=== PATIENT | male | born 1960 ===

== ENCOUNTER 2017-04-27 18:32 | Emergency (ER) | payer OTHER ==
[2017-04-27 19:33] VITALS: BP 122/78; PULSE 68; RESP 16; TEMP 98.7; O2SAT 100
--- NOTE | 2017-04-27 19:59 | ED PDOC ---
HPI: CCC, URI, Sore Throat Time Seen by Provider: 04/27/17 19:38 Chief Complaint (Nursing): Flu-like Symptoms Chief Complaint (Provider): Flu-like Symptoms History Per: Patient History/Exam Limitations: no limitations Onset/Duration Of Symptoms: Days (x2) Current Symptoms Are (Timing): Still Present Additional Complaint(s): 56-year-old male presents to the emergency department complaining of subjective fever with associated cough, sore throat, and body aches, since yesterday. He last took Motrin at 3PM today. Patient reports cough is productive of yellow phlegm. He denies chest pain or shortness of breath. PMD: None Past Medical History Reviewed: Historical Data, Nursing Documentation, Vital Signs Vital Signs: Last Vital Signs Temp 98.7 F 04/27/17 19:30 Pulse 68 04/27/17 19:30 Resp 16 04/27/17 19:30 BP 122/78 04/27/17 19:30 Pulse Ox 100 04/27/17 20:53 - Medical History PMH: Hypercholesterolemia - Surgical History Surgical History: Hernia Repair (inguinal ) - Family History Family History: States: No Known Family Hx - Living Arrangements Living Arrangements: With Family - Social History Current smoker - smoking cessation education provided: No Alcohol: None Drugs: Denies - Home Medications Home Medications: Ambulatory Orders Medication Instructions Recorded Ciprofloxacin Hydrochloride [Cipro] 750 mg PO BID 7 Days tab 12/22/13 Famotidine [Pepcid] 20 mg PO DAILY PRN #6 tab 12/22/13 Ibuprofen [Motrin] 600 mg PO Q8 PRN #6 tab 12/22/13 Metronidazole [Flagyl] 500 mg PO QID 7 Days tab 12/22/13 Acetaminophen [Acetaminophen ER] 650 mg PO Q8 #30 tablet.er 06/11/16 Docusate Sodium [Dulcolax Stool 100 mg PO BID #12 capsule 06/11/16 Softener] Phosphate Enema [Fleet Enema 135 135 ml RC BID #2 nma 06/11/16 Ml] Albuterol HFA [Ventolin HFA 90 1 puff IH ASDIR #1 unit 04/27/17 mcg/actuation (8 g)] Azithromycin [Zithromax] 250 mg PO DAILY #6 tab 04/27/17 Benzonatate 200 mg PO TID PRN #20 capsule 04/27/17 Oseltamivir Phosphate [Tamiflu] 75 mg PO BID #10 capsule 04/27/17 - Allergies Allergies/Adverse Reactions: Allergies Allergy/AdvReac Type Severity Reaction Status Date / Time No Known Allergies Allergy Verified 12/22/13 08:29 Review of Systems ROS Statement: Except As Marked, All Systems Reviewed And Found Negative Constitutional: Positive for: Fever, Other (Body aches) ENT: Positive for: Throat Pain Cardiovascular: Negative for: Chest Pain Respiratory: Positive for: Cough, Sputum (yellow). Negative for: Shortness of Breath Physical Exam - Reviewed Nursing Documentation Reviewed: Yes Vital Signs Reviewed: Yes - Physical Exam Appears: Positive for: Well, Non-toxic, No Acute Distress Head Exam: Positive for: ATRAUMATIC, NORMAL INSPECTION, NORMOCEPHALIC Skin: Positive for: Normal Color. Negative for: Rash Eye Exam: Positive for: Normal appearance ENT: Positive for: TM Is/Are (normal), Pharyngeal Erythema. Negative for: Tonsillar Exudate, Tonsillar Swelling Neck: Positive for: Normal, Painless ROM Cardiovascular/Chest: Positive for: Regular Rate, Rhythm. Negative for: Murmur Respiratory: Positive for: Normal Breath Sounds. Negative for: Accessory Muscle Use, Wheezing, Respiratory Distress Extremity: Positive for: Normal ROM Neurologic/Psych: Positive for: Alert, Oriented - ECG O2 Sat by Pulse Oximetry: 100 (RA) Pulse Ox Interpretation: Normal - Other Rad chest x-ray X-Ray: Interpreted by Me, Viewed By Me X-Ray Interpretation: no acute finding Medical Decision Making Medical Decision Making: Initial Impression: 56-year-old with flu-like symptoms Time: 19:56 Plan: Flu swab Rapid strep and throat culture Tylenol 975mg PO Motrin 600mg PO Chest X-Ray Will d/c with rx zithromax, tamiflu, tessalon perles and ventolin inhaler. Patient was instructed to continue with Tylenol and Motrin for fever control. He was referred to clinic for follow up. Scribe Attestation: Documented by Andreia Friend, acting as a scribe for Pamella cMcauley PA-C Provider Scribe Attestation: All medical record entries made by the Scribe were at my direction and personally dictated by me. I have reviewed the chart and agree that the record accurately reflects my personal performance of the history, physical exam, medical decision making, and the department course for this patient. I have also personally directed, reviewed, and agree with the discharge instructions and disposition. Disposition - Clinical Impression Clinical Impression: Influenza-like symptoms - Patient ED Disposition Is Patient to be Admitted: No Counseled Patient/Family Regarding: Studies Performed, Diagnosis, Need For Followup, Rx Given - Disposition Referrals: [facility] [Outside] Disposition: Routine/Home Disposition Time: 21:11 Condition: STABLE Additional Instructions: Take [id number] Tylenol and Motrin for body aches and fever. Take prescription meds as directed. Rest and drink plenty of fluids. Follow-up with clinic in 2-3 days. Prescriptions: Albuterol HFA [Ventolin HFA 90 mcg/actuation (8 g)] 1 puff IH ASDIR #1 unit Azithromycin [Zithromax] 250 mg PO DAILY #6 tab Benzonatate 200 mg PO TID PRN #20 capsule PRN Reason: Cough Oseltamivir Phosphate [Tamiflu] 75 mg PO BID #10 capsule Instructions: Upper Respiratory Infection (ED) Forms: [employer] (Sri Lankan) Print Language: ANGUILLAN
--- NOTE | 2017-04-28 11:04 | RAD ---
HISTORY: Cough. COMPARISON: No prior. TECHNIQUE: Chest PA and lateral FINDINGS: LUNGS: No active pulmonary disease. PLEURA: No significant pleural effusion identified. No pneumothorax apparent. CARDIOVASCULAR: No radiographic findings to suggest acute or significant cardiovascular disease. OSSEOUS STRUCTURES: No significant abnormalities. VISUALIZED UPPER ABDOMEN: Normal. OTHER FINDINGS: None. IMPRESSION: No active disease.
== END 2017-04-27 21:26 | disposition home or self-care (01) ==
LOC: H.ER 18:32
DX: J06.9 Acute upper respiratory infection, unspecified (principal); E78.00 Pure hypercholesterolemia, unspecified

== ENCOUNTER 2017-09-05 12:29 | Emergency (ER) | payer OTHER ==
[2017-09-05] MEDS ORDERED: Iohexol 240 (50 ml) PO ONE (13:33)
[2017-09-05] MEDS ORDERED: Sodium Chloride 0.9% 1,000 ML IV STA (13:34)
--- NOTE | 2017-09-05 13:37 | ED PDOC ---
HPI: Abdomen Time Seen by Provider: 09/05/17 12:30 Chief Complaint (Nursing): Abdominal Pain Chief Complaint (Provider): Abdominal Pain History Per: Patient History/Exam Limitations: no limitations Onset/Duration Of Symptoms: Days (x2) Current Symptoms Are (Timing): Still Present Additional Complaint(s): 56 year old male presents to the emergency department with complaints of periumbilical abdominal pain onset yesterday. Patient denies fever, vomiting, diarrhea, and urinary symptoms. PMD: none provided Past Medical History Reviewed: Historical Data, Nursing Documentation, Vital Signs Vital Signs: Last Vital Signs Temp 97.8 F 09/05/17 17:54 Pulse 69 09/05/17 17:54 Resp 16 09/05/17 17:54 BP 109/78 09/05/17 17:54 Pulse Ox 98 09/05/17 17:54 - Medical History PMH: Hypercholesterolemia - Surgical History Surgical History: Hernia Repair (inguinal ) - Family History Family History: States: Unknown Family Hx - Social History Current smoker - smoking cessation education provided: No Alcohol: None Drugs: Denies - Home Medications Home Medications: Ambulatory Orders Medication Instructions Recorded Ciprofloxacin Hydrochloride [Cipro] 750 mg PO BID 7 Days tab 12/22/13 Famotidine [Pepcid] 20 mg PO DAILY PRN #6 tab 12/22/13 Ibuprofen [Motrin] 600 mg PO Q8 PRN #6 tab 12/22/13 Metronidazole [Flagyl] 500 mg PO QID 7 Days tab 12/22/13 Acetaminophen [Acetaminophen ER] 650 mg PO Q8 #30 tablet.er 06/11/16 Docusate Sodium [Dulcolax Stool 100 mg PO BID #12 capsule 06/11/16 Softener] Phosphate Enema [Fleet Enema 135 135 ml RC BID #2 nma 06/11/16 Ml] Albuterol HFA [Ventolin HFA 90 1 puff IH ASDIR #1 unit 04/27/17 mcg/actuation (8 g)] Azithromycin [Zithromax] 250 mg PO DAILY #6 tab 04/27/17 Benzonatate 200 mg PO TID PRN #20 capsule 04/27/17 Oseltamivir Phosphate [Tamiflu] 75 mg PO BID #10 capsule 04/27/17 - Allergies Allergies/Adverse Reactions: Allergies Allergy/AdvReac Type Severity Reaction Status Date / Time No Known Allergies Allergy Verified 09/05/17 12:55 Review of Systems ROS Statement: Except As Marked, All Systems Reviewed And Found Negative Constitutional: Negative for: Fever Gastrointestinal: Positive for: Abdominal Pain (periumbilical). Negative for: Vomiting, Diarrhea Genitourinary Male: Negative for: Dysuria, Frequency, Incontinence Physical Exam - Reviewed Nursing Documentation Reviewed: Yes Vital Signs Reviewed: Yes - Physical Exam Appears: Positive for: No Acute Distress Head Exam: Positive for: ATRAUMATIC, NORMOCEPHALIC Skin: Positive for: Normal Color, Warm, Dry Eye Exam: Positive for: Normal appearance Neck: Positive for: Normal Cardiovascular/Chest: Positive for: Regular Rate, Rhythm. Negative for: Murmur Respiratory: Positive for: Normal Breath Sounds. Negative for: Accessory Muscle Use, Respiratory Distress Gastrointestinal/Abdominal: Positive for: Tenderness (periumbilical). Negative for: Mass, Guarding, Rebound Back: Positive for: Normal Inspection Extremity: Positive for: Normal ROM Neurologic/Psych: Positive for: Alert (and awake), Oriented (x3) - Laboratory Results Result Diagrams: 09/05/17 13:55 09/05/17 13:55 - ECG O2 Sat by Pulse Oximetry: 99 (RA) Pulse Ox Interpretation: Normal Medical Decision Making Medical Decision Making: Initial Impression: periumbilical abdominal pain rule out hernia incarceration, infection, abscess Time: 13:33 Initial Plan: --CT Abd pelvis w/ PO and IV contrast --CMP --Lipase --CBC with differential --Morphine 2mg PO --Sodium chloride 0.9% 1000ml IV --Iohexol 50ml PO --Urine Culture --Urinalysis 17:00 Patient signed out to Dr. Gant pending CT Abdomen/Pelvis read and final disposition. Scribe Attestation: Documented by Pennie Tang, acting as a scribe for Thomas Pope MD Provider Scribe Attestation: All medical entries made by the Scribe were at my direction and personally dictated by me. I have reviewed the chart and agree that the record accurately reflects my personal performance of the history, physical exam, medical decision making, and the department course for this patient. I have also personally directed, reviewed, and agree with the discharge instructions and disposition. Disposition - Clinical Impression Clinical Impression: Femoral hernia - Patient ED Disposition Is Patient to be Admitted: Transfer of Care - Disposition Referrals: Ponce Cordova MD [Staff Provider] - ([facility] DR CORDOVA [facility]) Disposition: Transfer of Care Disposition Time: 16:55 Condition: IMPROVED Instructions: Inguinal and Femoral (Groin) Hernias Forms: [facility] ED School/Work Excuse Print Language: TAIWANESE Patient Signed Over To: Pamella Gant
[2017-09-05] MEDS ORDERED: Iohexol 240 (50 ml) ONE (13:52)
[2017-09-05 14:08] LABS: BASO % 0.5 % (0.0-2.0); EOS # 0.4 K/uL (0.0-0.7); EOS % 5.4 % (0.0-4.0); HEMOGLOBIN 14.7 g/dL (12.0-18.0); LYMPH # 2.2 K/uL (1.0-4.3); LYMPH % 33.6 % (20.0-40.0); MEAN CELL VOLUME 88.2 fl (80.0-94.0); MEAN CORPUSCULAR HEMOGLOBIN 29.9 pg (27.0-31.0); MEAN CORPUSCULAR HGB CONC 33.9 g/dL (33.0-37.0); MEAN PLATELET VOLUME 9.2 fl (7.2-11.7); MONO # 0.6 K/uL (0.0-0.8); MONO % 9.1 % (0.0-10.0); NEUT # 3.4 K/uL (1.8-7.0); NEUT % 51.4 % (50.0-75.0); NRBC % 0.1 % (0.0-0.0); RBC 4.92 Mil/uL (4.40-5.90); RED CELL DISTRIBUTION WIDTH 13.8 % (11.5-14.5); WHITE BLOOD COUNT 6.5 K/uL (4.8-10.8)
[2017-09-05 14:14] LABS: SQUAMOUS EPITHIAL < 1 /hpf (0-5); URINE BACTERIA RARE (<OCC); URINE BILIRUBIN NEGATIVE (NEGATIVE); URINE BLOOD NEGATIVE (NEGATIVE); URINE CLARITY CLEAR (Clear); URINE COLOR YELLOW (YELLOW); URINE GLUCOSE (UA) NEG (Normal); URINE HYALINE CAST 0-2 /hpf (0-2); URINE LEUKOCYTE ESTERASE NEG Leu/uL (Negative); URINE PROTEIN NEGATIVE (NEGATIVE); URINE UROBILINOGEN 0.2-1.0 mg/dL (0.2-1.0)
[2017-09-05 14:18] LABS: ALB/GLOB RATIO 1.4 (1.0-2.1); ALBUMIN 4.1 g/dL (3.5-5.0); ALT/SGPT 42 U/L (21-72); AST/SGOT 31 U/L (17-59); BLOOD UREA NITROGEN 19 mg/dl (9-20); CALCIUM 8.9 mg/dL (8.4-10.2); GFR AFRICAN-AMERICAN > 60; GFR NON-AFRICAN AMERICAN > 60; LIPASE 46 U/L (23-300)
[2017-09-05] MEDS ORDERED: Iohexol 300 100 ML IJ ONE (15:36)
[2017-09-05] MEDS ORDERED: Sodium Chloride 0.9% 50 ML IV ONE (15:36)
--- NOTE | 2017-09-05 17:08 | CT ---
PROCEDURE: CT Abdomen and Pelvis with contrast HISTORY: abd pain periumbilical COMPARISON: Abdomen pelvis CT with contrast 06/11/2016. TECHNIQUE: Following oral and intravenous contrast administration, a CT examination of the abdomen and pelvis performed from the domes of the diaphragms to the symphysis pubis with reformatted datasets provided not only axial but also sagittal and coronal series. Contrast dose: Omnipaque 300, 95 cc Radiation dose: Total exam DLP = 904.16 mGy-cm. This CT exam was performed using one or more of the following dose reduction techniques: Automated exposure control, adjustment of the mA and/or kV according to patient size, and/or use of iterative reconstruction technique. FINDINGS: LOWER THORAX: Unremarkable. LIVER: Diffuse hepatic steatosis reiterated without discrete mass or intrahepatic biliary dilatation appreciated. GALLBLADDER AND BILE DUCTS: Unremarkable. PANCREAS: Unremarkable. No gross lesion or ductal dilatation. SPLEEN: Unremarkable. ADRENALS: Unremarkable. No mass. KIDNEYS AND URETERS: Unremarkable. No hydronephrosis. No solid mass. VASCULATURE: Unremarkable. No aortic aneurysm. BOWEL: Stomach is poorly evaluated due to collapse. There is a apparently a recurrent moderate right inguinal hernia containing a loop of distal small bowel. Relatively prominent focal reactive changes are seen in the mesentery associated with this loop in the right lower quadrant abdomen anteriorly and although there is no bowel obstruction appreciated at this time, this could be a function of mesenteric ischemia and early incarceration with resolved recent incarceration felt to be less likely given lack of bowel dilatation. There is adequate enhancement of the local vessels within this segment of mesenteric in the overall pattern may reflect postoperative reaction rather than potential early incarceration. There is a partial rotation of the mesentery proximal to entering into the right inguinal canal. Further, the appendix appears medially posterior to this reactive change but is gas filled and thin walled. Therefore appendicitis is not favored. Further clinical correlation is recommended here. No abscess or free air is identified at this time with the large bowel unremarkable as imaged. APPENDIX: See bowel section immediately above. PERITONEUM: See bowel section above. LYMPH NODES: Unremarkable. No enlarged lymph nodes. BLADDER: Bladder is collapsed and poorly evaluated as result. REPRODUCTIVE: Enlarged prostate gland is identified. BONES: No acute fracture. OTHER FINDINGS: None. IMPRESSION: Complex pattern of local reactive changes within a segment of the small bowel mesentery and small bowel involved in a recurrent right inguinal hernia with local reactive changes focally at the right lower quadrant both extrinsic and intrinsic to the right inguinal canal is identified. Early incarceration is not favored but is not excluded and may include an element mesenteric ischemia though adequate enhancement is seen in the vasculature in this segment of mesentery. Surgical consultation recommended. Other lesser findings as discussed above. Findings discussed with Dr. Gant with written down and read back verification 09/05/2017 5:05 p.m..
--- NOTE | 2017-09-05 17:15 | ED PDOC ---
- Laboratory Results Result Diagrams: 09/05/17 13:55 09/05/17 13:55 - ECG O2 Sat by Pulse Oximetry: 99 (RA) Pulse Ox Interpretation: Normal Medical Decision Making Medical Decision Making: Time: 1654 Patient signed out to me by Dr. Pope pending CT abdomen/pelvis read. Time: [address] Ortiz, radiologist who discussed CT findings. anesthesiology resident paged. CT Abdomen/Pelvis FINDINGS: LOWER THORAX: Unremarkable. LIVER: Diffuse hepatic steatosis reiterated without discrete mass or intrahepatic biliary dilatation appreciated. GALLBLADDER AND BILE DUCTS: Unremarkable. PANCREAS: Unremarkable. No gross lesion or ductal dilatation. SPLEEN: Unremarkable. ADRENALS: Unremarkable. No mass. KIDNEYS AND URETERS: Unremarkable. No hydronephrosis. No solid mass. VASCULATURE: Unremarkable. No aortic aneurysm. BOWEL: Stomach is poorly evaluated due to collapse. There is a apparently a recurrent moderate right inguinal hernia containing a loop of distal small bowel. Relatively prominent focal reactive changes are seen in the mesentery associated with this loop in the right lower quadrant abdomen anteriorly and although there is no bowel obstruction appreciated at this time, this could be a function of mesenteric ischemia and early incarceration with resolved recent incarceration felt to be less likely given lack of bowel dilatation. There is adequate enhancement of the local vessels within this segment of mesenteric in the overall pattern may reflect postoperative reaction rather than potential early incarceration. There is a partial rotation of the mesentery proximal to entering into the right inguinal canal. Further, the appendix appears medially posterior to this reactive change but is gas filled and thin walled. Therefore appendicitis is not favored. Further clinical correlation is recommended here. No abscess or free air is identified at this time with the large bowel unremarkable as imaged. APPENDIX: See bowel section immediately above. PERITONEUM: See bowel section above. LYMPH NODES: Unremarkable. No enlarged lymph nodes. BLADDER: Bladder is collapsed and poorly evaluated as result. REPRODUCTIVE: Enlarged prostate gland is identified. BONES: No acute fracture. OTHER FINDINGS: None. IMPRESSION: Complex pattern of local reactive changes within a segment of the small bowel mesentery and small bowel involved in a recurrent right inguinal hernia with local reactive changes focally at the right lower quadrant both extrinsic and intrinsic to the right inguinal canal is identified. Early incarceration is not favored but is not excluded and may include an element mesenteric ischemia though adequate enhancement is seen in the vasculature in this segment of mesentery. Surgical consultation recommended. Other lesser findings as discussed above. Findings discussed with Dr. Gant with written down and read back verification 09/05/2017 5:[address] Cordova in ER who manually reduced hernia. Pt feels better and stable for discharge Scribe Attestation: Documented by Nan Jhaveri, acting as a scribe for Pamella Gant MD. Provider Attestation: All medical record entries made by the Scribe were at my direction and personally dictated by me. I have reviewed the chart and agree that the record accurately reflects my personal performance of the history, physical exam, medical decision making, and the department course for this patient. I have also personally directed, reviewed, and agree with the discharge instructions and disposition. Disposition - Clinical Impression Clinical Impression: Femoral hernia - POA Present On Arrival: None - Disposition Referrals: Ponce Cordova MD [Staff Provider] - ([facility] DR CORD[facility]) Disposition: Routine/Home Disposition Time: 17:41 Condition: IMPROVED Instructions: Inguinal and Femoral (Groin) Hernias Forms: [facility] ED School/Work Excuse Print Language: [id number]
--- NOTE | 2017-09-05 17:45 | CP.PCM.CON ---
History of Present Illness - History of Present Illness History of Present Illness: 56 y.o. male comes to the hospital c/o right groin pain for the duration of the last few days. Of note patient had repair of the right inguinal hernia done about 1 year ago in [place]. Patient states that after his hernia surgery he was fine for about 4 months but then the hernia came back. Patient denies any nausea or vomiting, no fever or chills, passing flatus and having normal bowel movements. Denies any urinary symptoms. No other complains at present time. Review of Systems - Constitutional Constitutional: As Per HPI - EENT Eyes: Other (unremarkable) Ears: Other (unremarkable) Nose/Mouth/Throat: Other (unremarkable) - Cardiovascular Cardiovascular: Other (unremarkable) - Respiratory Respiratory: Other (unremarkable) - Gastrointestinal Gastrointestinal: As Per HPI - Genitourinary Genitourinary: As Per HPI - Musculoskeletal Musculoskeletal: Other (unremarkable) - Integumentary Integumentary: Other (unremarkable) - Neurological Neurological: Other (unremarkable) - Psychiatric Psychiatric: Other (unremarkable) - Endocrine Endocrine: Other (unremarkable) - Hematologic/Lymphatic Hematologic: Other (unremarkable) Past Patient History - Infectious Disease Hx of Infectious Diseases: None - Past Social History Alcohol: None Drugs: Denies - CARDIAC Hx Hypercholesterolemia: Yes - PULMONARY Hx Respiratory Disorders: No - NEUROLOGICAL Hx Neurological Disorder: No - HEENT Hx HEENT Problems: No - RENAL Hx Chronic Kidney Disease: No - ENDOCRINE/METABOLIC Hx Endocrine Disorders: No - HEMATOLOGICAL/ONCOLOGICAL Hx Blood Disorders: No - INTEGUMENTARY Hx Dermatological Problems: No - MUSCULOSKELETAL/RHEUMATOLOGICAL Hx Musculoskeletal Disorders: No - GASTROINTESTINAL Hx Gastrointestinal Disorders: No Other/Comment: right inguinal hernia - GENITOURINARY/GYNECOLOGICAL Hx Genitourinary Disorders: No - PSYCHIATRIC Hx Psychophysiologic Disorder: No Hx Substance Use: No - SURGICAL HISTORY Hx Surgeries: Yes Hx Herniorrhaphy: Yes (right inguinal hernia repair) - ANESTHESIA Hx Anesthesia: Yes Meds Allergies/Adverse Reactions: Allergies Allergy/AdvReac Type Severity Reaction Status Date / Time No Known Allergies Allergy Verified 09/05/17 12:55 - Medications Medications: Current Medications Sodium Chloride (Sodium Chloride 0.9%) 1,000 mls @ 150 mls/hr IV .[id number] STA Stop: 09/05/17 20:13 Last Admin: 09/05/17 13:55 Dose: 150 mls/hr Physical Exam - Constitutional Appears: Well, Non-toxic, No Acute Distress - Head Exam Head Exam: ATRAUMATIC, NORMAL INSPECTION, NORMOCEPHALIC - Eye Exam Eye Exam: EOMI, Normal appearance, PERRL Pupil Exam: NORMAL ACCOMODATION, PERRL - ENT Exam ENT Exam: Mucous Membranes Moist, Normal Exam - Neck Exam Neck exam: Positive for: Full Rom, Normal Inspection - Respiratory Exam Respiratory Exam: Clear to Auscultation Bilateral, NORMAL BREATHING PATTERN - Cardiovascular Exam Cardiovascular Exam: REGULAR RHYTHM, +S1, +S2 - GI/Abdominal Exam GI & Abdominal Exam: Normal Bowel Sounds, Soft Additional comments: very mildly tender in the lower abdomen, ND, BS+, no rebound, no guarding, reducible right inguinal hernia, no overlying skin changes, well healed right groin scar from prior hernia repair - Rectal Exam Rectal Exam: Deferred - Extremities Exam Extremities exam: Positive for: full ROM, normal inspection - Back Exam Back exam: NORMAL INSPECTION - Neurological Exam Neurological exam: Alert, CN II-XII Intact, Oriented x3 - Psychiatric Exam Psychiatric exam: Normal Affect, Normal Mood - Skin Skin Exam: Dry, Intact, Normal Color, Warm Results - Vital Signs Recent Vital Signs: Last Vital Signs Temp 98.1 F 09/05/17 12:55 Pulse 66 09/05/17 12:55 Resp 18 09/05/17 12:55 BP 109/67 09/05/17 12:55 Pulse Ox 99 09/05/17 17:39 - Labs Result Diagrams: 09/05/17 13:55 09/05/17 13:55 Labs: Laboratory Results - last 24 hr 09/05/17 09/05/17 09/05/17 13:55 13:55 13:55 WBC 6.5 D RBC 4.92 Hgb 14.7 Hct 43.4 MCV 88.2 MCH 29.9 MCHC 33.9 RDW 13.8 Plt Count 211 MPV 9.2 Neut % (Auto) 51.4 Lymph % (Auto) 33.6 [place] % (Auto) 9.1 Eos % (Auto) 5.4 H Baso % (Auto) 0.5 Neut # (Auto) 3.4 Lymph # (Auto) 2.2 [place] # (Auto) 0.6 Eos # (Auto) 0.4 Baso # (Auto) 0.0 Sodium 140 Potassium 4.0 Chloride 103 Carbon Dioxide 22 Anion Gap 19 BUN 19 Creatinine 0.8 Est GFR ( Amer) > 60 Est GFR (Non-Af Amer) > 60 Random Glucose 108 Calcium 8.9 Total Bilirubin 0.6 AST 31 ALT 42 Alkaline Phosphatase 92 Total Protein 7.2 Albumin 4.1 Globulin 3.0 Albumin/Globulin Ratio 1.4 Lipase 46 Urine Color Yellow Urine Clarity Clear Urine pH 6.0 Ur Specific [place] 1.014 Urine Protein Negative Urine Glucose (UA) Neg Urine Ketones Negative Urine Blood Negative Urine Nitrate Negative Urine Bilirubin Negative Urine Urobilinogen 0.2-1.0 Ur Leukocyte Esterase Neg Urine RBC (Auto) 2 Urine Microscopic WBC 1 Ur Squamous Epith Cells < 1 Urine Bacteria Rare Hyaline Casts 0-2 - Imaging and Cardiology CT scan - abdomen Status: Image reviewed by me, Report reviewed by me Assessment & Plan - Assessment and Plan (Free Text) Assessment: 56 y.o. male with reducible recurrent right inguinal hernia Plan: - I had an extensive discussion with the patient and family member present at the bedside and explained to him that since hernia is reducible there is no need for any emergent surgery - Patient will follow up with me in the office to schedule elective right inguinal hernia repair - Patient was specifically instructed that if he develops severe pain in the groin, cannot pass flatus or have a bowel movements and develops nausea or vomiting to come back to the hospital as soon as possible - Patient is clear for discharge home from the general surgery stand point
[2017-09-05 17:55] VITALS: BP 109/78; PULSE 69; RESP 16; TEMP 97.8
[2017-09-06 16:08] VITALS: O2SAT 99
== END 2017-09-05 17:54 | disposition home or self-care (01) ==
LOC: H.ER 12:29
DX: K40.91 Unilateral inguinal hernia, without obstruction or gangrene, recurrent (principal); Z98.890 Other specified postprocedural states; E78.00 Pure hypercholesterolemia, unspecified
CPT/HCPCS: 74177; 80053; 81003; 83690; 85025; 87086; 96360; 96361; 99285; J2270; J7030; Q9966; Q9967

== ENCOUNTER 2017-09-16 06:57 | Day surgery (SDC) | payer SELFPAY ==
[2017-09-16 07:41] VITALS: RESP 18
[2017-09-16 07:51] VITALS: BMI 26.9
[2017-09-16] MEDS ORDERED: Bupivacaine HCl 0.25% PF (30 ml) Inj ONE ×2 (09:38→09:43)
[2017-09-16] MEDS ORDERED: Neostigmine 1:1000 (1 mg/ml) Inj ONE (09:39)
[2017-09-16] MEDS ORDERED: Succinylcholine 200 mg/10 ml Inj IV ONE (09:42)
[2017-09-16] MEDS ORDERED: Lidocaine 4% (Laryng-O-Jet) Kit MM ONE (09:42)
[2017-09-16] MEDS ORDERED: Rocuronium 10 mg/ml (5 ml) ONE ×2 (09:42→12:02)
[2017-09-16] MEDS ORDERED: Propofol 10 mg/ml Inj (20 ML) ONE (09:42)
[2017-09-16] MEDS ORDERED: Phenylephrine 10 mg/ml Inj ONE (09:42)
[2017-09-16] MEDS ORDERED: Dexamethasone 4 mg/1 ml ONE (09:46)
[2017-09-16] MEDS ORDERED: Lactated Ringer's 1,000 ML IV ONE ×2 (09:50→12:30)
[2017-09-16] MEDS ORDERED: Midazolam 2 MG/2 ML VIAL ONE (09:52)
[2017-09-16] MEDS ORDERED: Oxycodone/Acetaminophen 5/325 mg Tab PO PRN ×2 (13:40)
[2017-09-16] MEDS ORDERED: Oxycodone/Acetaminophen 5/325 mg Tab PO ONE (13:40)
--- NOTE | 2017-09-16 13:45 | PCM.SURG1 ---
Surgeon's Initial Post Op Note - Surgeon's Notes Surgeon: Dr. Guadalupe Revenue Manager: PGY1, Duglas DPM Type of Anesthesia: General Endo Anesthesia Administered By: Dr. Cruz Pre-Operative Diagnosis: Recurrent Right inguinal hernia Operative Findings: direct and indirect hernia. large hernia defect w/ reducible bowel. severe scar tissue around previous surgical site Post-Operative Diagnosis: Right Direct and indirect (pantaloon) inguinal hernia Operation Performed: Right inguinal hernia repair, with mesh, and bassini technique Specimen/Specimens Removed: hernia sac Estimated Blood Loss: EBL {In ML}: 15 Blood Products Given: N/A Drains Used: No Drains Post-Op Condition: Good Date of Surgery/Procedure: 09/16/17 Time of Surgery/Procedure: 13:47
[2017-09-16] MEDS ORDERED: HYDROmorphone 0.5 mg/0.5 ml ISec IVP PRN (13:48)
[2017-09-16] MEDS ORDERED: Lactated Ringer's 1,000 ML IV SCH (14:00)
[2017-09-16 16:35] VITALS: BP 126/76; PULSE 91; TEMP 98.2; O2SAT 95
--- NOTE | 2017-09-17 00:53 | OP ---
PROCEDURE DATE: 09/16/2017 PREOPERATIVE DIAGNOSIS: Recurrent right inguinal hernia. POSTOPERATIVE DIAGNOSIS: Recurrent right inguinal hernia, both direct and indirect defect (pantaloon hernia). PROCEDURE: Repair of the right inguinal hernia in a plug and patch fashion. SURGEON: Ponce Guadalupe MD INFANTRY INDIRECT FIRE CREWMEMBER: Dr. Ochoa. TYPE OF ANESTHESIA: General with endotracheal intubation. ANESTHESIOLOGIST: Riky Cruz MD IV FLUIDS: Crystalloids. ESTIMATED BLOOD LOSS: 10 mL. INTRAOPERATIVE FINDINGS: Pantaloon hernia, both direct and indirect defects. SPECIMEN: Hernia sac. BRIEF HISTORY: The patient is a very pleasant 56-year-old gentleman who presented to the office with complaints of recurrent right inguinal hernia. The patient had a repair about a year ago in [place], and 4 months subsequent to the hernia repair, the patient developed the recurrence, so he presented to the office asking for the hernia to be fixed. All the risks and benefits of the procedure were explained to the patient with the patient having a full understanding of all the risks and benefits involved. Informed consent was obtained, and the patient was taken to the operating room for above-stated procedure. DESCRIPTION OF PROCEDURE: The patient was brought into the operating room and placed supine on the operating table. Bilateral Flowtron boots were applied to the patient's lower extremities. After successful induction of anesthesia and successful endotracheal intubation by the anesthesia team, the patient's lower abdomen and right groin were shaved and prepped with ChloraPrep stick and draped in the standard surgical fashion. Prior to the beginning of the procedure, the patient received prophylactic Ancef antibiotics. A time-out was called in the room and everyone in the room were in agreement. Using #15 blade scalpel knife, approximately 10 cm incision was made above the inguinal ligament and parallel to the inguinal ligament. Subsequent to that, dissection was carried down with electrical cautery for the subcutaneous tissues until the Cindy fascia was encountered. Cindy fascia was transected with electrical cautery and dissection was carried down until the fibers of the external oblique muscle were encountered. Once the fibers were visualized, a small ashtyn was made with 15 blade scalpel knife, along the fibers of the external oblique, and subsequent to that using Metzenbaum scissors, the external oblique muscle was opened up and roof of the inguinal canal was exposed. At this point in time, 2 mosquito clamps were placed on the superior edge of the transected external oblique muscle and 2 mosquito clamps were placed on the inferior edge. Using blunt dissection with peanut, the flaps were raised of the external oblique muscle superiorly and inferiorly. At this point in time, I encountered some scar tissue more at the medial side, and there appeared to be a mass from prior repair that was excised with electrical cautery and passed off to the Cunningham stand as a specimen. At this point in time, the spermatic cord and hernia sac were mobilized and a Modesta drain was placed along them. Once this was accomplished, attention was turned to the hernia sac. Hernia sac was dissected off the cord structures, taken care to preserve the cord structures, especially at the vas deferens. The sac was dissected off bluntly as well as with sharp dissection with electrical cautery. Once the sac was completely mobilized off the cord structures, it was opened up and the bowel was reduced back into the abdominal cavity. At this point in time, the sac was transected with electrical cautery and passed off to the Cunningham stand as a specimen. Sac was closed with running locking 3-0 Vicryl suture, and subsequent to that, attention was turned to the internal inguinal ring. I made the decision to use an extra large plug. The plug was placed into the internal inguinal ring, and subsequent to that, was secured in place to the conjoint tendon with interrupted 3-0 Vicryl suture. Once the ring was secured in place, our attention was turned to the floor of the inguinal canal. There appeared to be a direct inguinal hernia. So, at this point in time, since the floor was extremely weak, I made a decision to reinforce the floor with 2-0 Prolene suture attaching the shelving edge of the inguinal ligament to the conjoint tendon in 2 layers; one in towards the spermatic, subsequent to that one in towards the pubic symphysis and tied. At this point in time, the mesh was tailored in order to fit floor of the inguinal canal and was secured at the apex to the pubic tubercle with 2-0 Vicryl suture on UR-6 needle. Subsequent to that, the mesh was secured superiorly with interrupted 3-0 Vicryl suture to the conjoint tendon, and inferiorly to the shelving edge of the inguinal ligament. Subsequent to that, the ears of the mesh were brought around the spermatic cord and secured behind the spermatic cord with interrupted 3-0 Vicryl suture. At this point in time, the wound was irrigated and dried, and there appeared to be adequate hemostasis. At this point in time, the Purcell drain was removed, cord was reduced back, and external oblique muscle was closed with running 3-0 Vicryl suture. At this point in time, Cindy fascia was reapproximated using 3-0 Vicryl suture in interrupted fashion. Subsequent to that, several deep dermal sutures were placed with 3-0 Vicryl suture in an interrupted fashion, and once this was accomplished, 4-0 Monocryl suture was used in subcuticular fashion approximate the skin. At this point in time, the patient's groin was washed and dried and Dermabond was applied to the site of the incision. At the end of the procedure, both testicles were checked and they appear to be in scrotum. The patient was successfully extubated by the anesthesia team, transferred to the stretcher, and taken to the recovery room in a stable condition. At the end of the procedure, a scrotal support was placed along the patient's scrotum, and all the instrument counts, needles, and sponges were correct. Ponce Guadalupe MD
== END 2017-09-16 16:55 | disposition home or self-care (01) ==
LOC: H.OPSURG 06:57
PROVIDERS: ATTEND Surgery
DX: K40.91 Unilateral inguinal hernia, without obstruction or gangrene, recurrent (principal); E78.5 Hyperlipidemia, unspecified
CPT/HCPCS: 49520; 64486; 88302; 88304; C1781; J0330; J0690; J1100; J1170; J2001; J2250; J2370; J2405; J2704; J2710; J2765; J3010; J7030; J7120